=== PATIENT | female | born 1980 | race American Indian/Alaskan Native ===

== ENCOUNTER 2017-09-06 21:35 | Emergency (ER) | payer SELFPAY ==
--- NOTE | 2017-09-06 22:30 | Emergency Department Report ---
HPI - General Chief Complaint: Psych Time Seen by Provider: 09/06/17 22:08 - HPI HPI: Antoine [id number] The patient is a 36-year-old female presenting with a chief complaint of altered mental status. Patient was found by police standing in the middle of the street in the rain. The patient denies having psychiatric history but exhibits a labile affect while in the ED laughing out loud at times inappropriately. The patient states she was being transferred to a "new 5 bedroom home" which turned out to be a personal group home that was "demonic." The patient states "they had me in there with a woman who was in hell." The patient states earlier today there were people that wanted to "kick my behind and kill me." Location: Mental state Duration: Unknown Quality: Paranoid, delusional Severity: Severe Modifying factors: [see above] Context: [see above] Mode of transportation: [not driving] ED Past Medical Hx - Past Medical History Previous Medical History?: No Additional medical history: Patient denies medical history. Patient denies psychiatric history - Surgical History Past Surgical History?: No - Family History Family history: no significant - Social History Smoking Status: Never Smoker Substance Use Type: None (denies illicit drug use) - Medications Home Medications: Home Medications Medication Instructions Recorded Confirmed Last Taken Type Sulfamethoxazole/Trimethoprim 1 each PO BID #6 tablet 09/07/17 Unknown Rx [Bactrim DS TAB] ED Review of Systems ROS: Stated complaint: MH EVAL Other details as noted in HPI Psychiatric: denies: auditory hallucinations, visual hallucinations, homicidal thoughts, suicidal thoughts Physical Exam - Physical Exam Vital Signs: Vital Signs 09/06/17 21:54 Temperature 98.7 F Pulse Rate 88 Respiratory 17 Rate Blood Pressure 133/64 Physical Exam: GENERAL: The patient is well-developed well-nourished female sitting on stretcher not appearing to be in acute distress. Laughs outloud inappropriately at times HEENT: Normocephalic. Atraumatic. Extraocular motions are intact. Patient has moist mucous membranes. NECK: Supple. Trachea midline CHEST/LUNGS: Clear to auscultation. There is no respiratory distress noted. HEART/CARDIOVASCULAR: Regular. There is no tachycardia. There is no gallop rub or murmur. ABDOMEN: Abdomen is soft, nontender. Patient has normal bowel sounds. There is no abdominal distention. SKIN: There is no rash. There is no edema. There is no diaphoresis. NEURO: The patient is awake and alert. The patient is cooperative. The patient has normal speech MUSCULOSKELETAL: There is no evidence of acute injury. ED Course Vital Signs 09/06/17 21:54 Temperature 98.7 F Pulse Rate 88 Respiratory 17 Rate Blood Pressure 133/64 ED Medical Decision Making - Lab Data Result diagrams: 09/06/17 22:19 09/06/17 22:19 Laboratory Tests 09/06/17 09/06/17 09/06/17 22:19 22:19 22:19 WBC 7.0 RBC 4.83 Hgb 12.7 Hct 38.9 MCV 81 MCH 26 L MCHC 33 RDW 14.6 Plt Count 270 Lymph % (Auto) 26.8 [place] % (Auto) 8.2 H Eos % (Auto) 2.1 Baso % (Auto) 0.3 Lymph # 1.9 [place] # 0.6 Eos # 0.1 Baso # 0.0 Seg Neutrophils % 62.6 Seg Neutrophils # 4.4 Sodium 139 Potassium 3.6 Chloride 103.7 Carbon Dioxide 20 L Anion Gap 19 BUN 17 Creatinine 0.7 Estimated GFR > 60 BUN/Creatinine Ratio 24 Glucose 102 H Calcium 8.9 Total Bilirubin < 0.20 AST 21 ALT 28 Alkaline Phosphatase 102 Total Protein 7.0 Albumin 3.9 Albumin/Globulin Ratio 1.3 HCG, Quant < 2 Urine Color Urine Turbidity Urine pH Ur Specific [place] Urine Protein Urine Glucose (UA) Urine Ketones Urine Blood Urine Nitrite Urine Bilirubin Urine Urobilinogen Ur Leukocyte Esterase Urine WBC (Auto) Urine RBC (Auto) U Epithel Cells (Auto) Urine Mucus Urine Yeast (Budding) Salicylates Urine Opiates Screen Urine Methadone Screen Acetaminophen Ur Barbiturates Screen Ur Phencyclidine Scrn Ur Amphetamines Screen U Benzodiazepines Scrn Urine Cocaine Screen U Marijuana (THC) Screen Drugs of Abuse Note Plasma/Serum Alcohol 09/06/17 09/06/17 09/06/17 22:19 22:19 22:19 WBC RBC Hgb Hct MCV MCH MCHC RDW Plt Count Lymph % (Auto) [place] % (Auto) Eos % (Auto) Baso % (Auto) Lymph # [place] # Eos # Baso # Seg Neutrophils % Seg Neutrophils # Sodium Potassium Chloride Carbon Dioxide Anion Gap BUN Creatinine Estimated GFR BUN/Creatinine Ratio Glucose Calcium Total Bilirubin AST ALT Alkaline Phosphatase Total Protein Albumin Albumin/Globulin Ratio HCG, Quant Urine Color Urine Turbidity Urine pH Ur Specific [place] Urine Protein Urine Glucose (UA) Urine Ketones Urine Blood Urine Nitrite Urine Bilirubin Urine Urobilinogen Ur Leukocyte Esterase Urine WBC (Auto) Urine RBC (Auto) U Epithel Cells (Auto) Urine Mucus Urine Yeast (Budding) Salicylates < 0.3 L Urine Opiates Screen Urine Methadone Screen Acetaminophen < 5.0 L Ur Barbiturates Screen Ur Phencyclidine Scrn Ur Amphetamines Screen U Benzodiazepines Scrn Urine Cocaine Screen U Marijuana (THC) Screen Drugs of Abuse Note Plasma/Serum Alcohol < 0.01 09/06/17 09/06/17 Unknown Unknown WBC RBC Hgb Hct MCV MCH MCHC RDW Plt Count Lymph % (Auto) [place] % (Auto) Eos % (Auto) Baso % (Auto) Lymph # [place] # Eos # Baso # Seg Neutrophils % Seg Neutrophils # Sodium Potassium Chloride Carbon Dioxide Anion Gap BUN Creatinine Estimated GFR BUN/Creatinine Ratio Glucose Calcium Total Bilirubin AST ALT Alkaline Phosphatase Total Protein Albumin Albumin/Globulin Ratio HCG, Quant Urine Color Yellow Urine Turbidity Clear Urine pH 5.0 Ur Specific [place] 1.028 Urine Protein 30 mg/dl Urine Glucose (UA) Neg Urine Ketones Neg Urine Blood Lg Urine Nitrite Neg Urine Bilirubin Neg Urine Urobilinogen < 2.0 Ur Leukocyte Esterase Tr Urine WBC (Auto) 45.0 H Urine RBC (Auto) > 182.0 U Epithel Cells (Auto) 3.0 Urine Mucus Few Urine Yeast (Budding) 1+ Salicylates Urine Opiates Screen Presumptive negative Urine Methadone Screen Presumptive negative Acetaminophen Ur Barbiturates Screen Presumptive negative Ur Phencyclidine Scrn Presumptive negative Ur Amphetamines Screen Presumptive negative U Benzodiazepines Scrn Presumptive negative Urine Cocaine Screen Presumptive negative U Marijuana (THC) Screen Presumptive negative Drugs of Abuse Note Disclamer Plasma/Serum Alcohol - Differential Diagnosis psychosis NOS, schizophrenia Critical care attestation.: If time is entered above; I have spent that time in minutes in the direct care of this critically ill patient, excluding procedure time. ED Disposition Clinical Impression: Delusional disorder, UTI (urinary tract infection) Disposition: [id number]/TX-65 PSY HOSP/PSY UNIT Is pt being admited?: No Does the pt Need Aspirin: No Condition: Fair Prescriptions: Sulfamethoxazole/Trimethoprim [Bactrim DS TAB] 1 each PO BID #6 tablet Referrals: PRIMARY CARE, [Primary Care Provider] - 3-5 Days Time of Disposition: 01:04 (awaiting acceptance)
[2017-09-06 22:57] LABS: Alanine Aminotransferase 28 units/L (7-56); Albumin 3.9 g/dL (3.9-5); BUN/Creatinine Ratio 24; Basophils % (Auto) 0.3 % (0.0-1.8); Blood Urea Nitrogen 17 mg/dL (7-17); Calcium 8.9 mg/dL (8.4-10.2); Eosinophils # (Auto) 0.1 K/mm3 (0.0-0.4); Eosinophils % (Auto) 2.1 % (0.0-4.3); Hematocrit 38.9 % (30.3-42.9); Hemoglobin 12.7 gm/dl (10.1-14.3); Hemolysis Index 3; Lymphocytes # (Auto) 1.9 K/mm3 (1.2-5.4); Lymphocytes % (Auto) 26.8 % (13.4-35.0); Mean Corpuscular HGB Conc 33 % (30-34); Mean Corpuscular Hemoglobin 26 pg (28-32); Mean Corpuscular Volume 81 fl (79-97); Monocytes # (Auto) 0.6 K/mm3 (0.0-0.8); Monocytes % (Auto) 8.2 % (0.0-7.3); Platelet Count 270 K/mm3 (140-440); Red Blood Count 4.83 M/mm3 (3.65-5.03); Red Cell Distribution Width 14.6 % (13.2-15.2)
[2017-09-06 23:01] LABS: Bilirubin,Urine NEG (Negative); Blood,Urine LG (Negative); Color,Urine Yellow (Yellow); Mucus,Urine FEW /HPF; Urobilinogen,Urine < 2.0 mg/dL (<2.0)
[2017-09-06 23:02] LABS: RBC,Urine > 182.0 /HPF (0.0-6.0)
[2017-09-06 23:10] LABS: Amphetamine Screen,Urine PRESUMPTIVE NEGATIVE; Benzodiazepines Screen,Urine PRESUMPTIVE NEGATIVE; Cannabinoid Screen,Urine PRESUMPTIVE NEGATIVE; Cocaine Screen,Urine PRESUMPTIVE NEGATIVE; Methadone Screen,Urine PRESUMPTIVE NEGATIVE; Opiate Screen,Urine PRESUMPTIVE NEGATIVE
[2017-09-07] MEDS ORDERED: HALDOL IM PRN (01:01)
[2017-09-07] MEDS: ATIVAN IM PRN ×2 (01:14→13:02)
[2017-09-07] MEDS: BENADRYL IM PRN (01:15)
[2017-09-07] MEDS: BACTRIM DS PO SCH ×2 (10:16→22:26)
--- NOTE | 2017-09-07 17:44 | Consultation ---
History of Present Illness - Reason for Consult Consult date: 09/07/17 Reason for consult: Initial Psychiatric Evaluation - Chief Complaint Chief complaint: " I'm seeking a place to live." - History of Present Psychiatric Illness Patient is a 36-year-old female who presents with a chief complaint of altered mental status. Patient was found by police standing in the middle of the street in the rain. The patient denies having a psychiatric history but exhibits a labile affect and evidence of psychosis. During the assessment patient refers to herself as Lisseth. Although she denies psychosis , currently patient is delusional. 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 She reports good energy, appetite, and sleep. Patient seen responding to internal stimuli, laughing inappropriately. She denies depressed mood and suicidal/homicidal ideations. Current Psychiatric Medications: Patient denies. Past Psychiatric History: Patient denies PPHx; No previous psychiatric inpatient hospitalizations; No outpatient psychiatrist; No previous suicide attempts. Past Psychiatric Medication Trials: Patient denies. History of Trauma/Abuse: Patient denies sexual, physical, and mental abuse. Drug/Alcohol Abuse: Patient denies drug/alcohol abuse. UDS is negative. Social History: Some College (?); No source of income; Single; Homeless (?) Medications and Allergies Allergies Allergy/AdvReac Type Severity Reaction Status Date / Time No Known Drug Allergies Allergy Unknown Verified 09/07/17 01:19 Home Medications Medication Instructions Recorded Confirmed Last Taken Type Sulfamethoxazole/Trimethoprim 1 each PO BID #6 tablet 09/07/17 Unknown Rx [Bactrim DS TAB] Active Meds: Active Medications Diphenhydramine HCl (Benadryl) 50 mg IM Q6H PRN PRN Reason: Agitation Last Admin: 09/07/17 01:15 Dose: 50 mg Haloperidol Lactate (Haldol) 10 mg IM Q8H PRN PRN Reason: Agitation Last Admin: 09/07/17 01:15 Dose: 10 mg Lorazepam (Ativan) 2 mg IM Q8H PRN PRN Reason: Agitation Last Admin: 09/07/17 13:02 Dose: 2 mg Trimethoprim/Sulfamethoxazole (Bactrim Ds) 1 each PO Q12HR RAE Stop: 09/10/17 10:00 Last Admin: 09/07/17 10:16 Dose: 1 each Mental Status Exam - Vital signs Last Vital Signs Temp 98.7 F 09/06/17 21:54 Pulse 88 09/06/17 21:54 Resp 17 09/06/17 21:54 BP 133/64 09/06/17 21:54 Pulse Ox - Exam Narrative exam: Mental Status Exam General Appearance: Causally Dressed-hospital gown Eye Contact: Intermittent Orientation: Alert and oriented x 4 ( person, place, time, and situation) Attitude/Behavior: Cooperative Sensorium: Distracted Psychomotor & Musculoskeletal Activity: Laying in bed Mood: "I'm fine." Affect: Constricted Speech/Language: Regular rate and tone. Thought Processes: Disorganized, circumstantial Thought Content: Impoverished. Delusions of grandeur and ideas of reference. Perception: Internally preoccupied. Laughing inappropriately. Concentration/Attention: Impaired Suicidal Ideations/Plan: Patient denies. Homicidal Ideations/Plan: Patient denies. Insight: Poor Judgment: Poor Results Result Diagrams: 09/06/17 22:19 09/06/17 22:19 Abnormal lab results 09/06/17 09/06/17 09/06/17 Range/Units 22:19 22:19 22:19 MCH 26 L (28-32) pg [place] % (Auto) 8.2 H (0.0-7.3) % Carbon Dioxide 20 L (22-30) mmol/L Glucose 102 H (65-100) mg/dL Urine WBC (Auto) (0.0-6.0) /HPF Salicylates < 0.3 L (2.8-20.0) mg/dL Acetaminophen (10.0-30.0) ug/mL 09/06/17 09/06/17 Range/Units 22:19 Unknown MCH (28-32) pg [place] % (Auto) (0.0-7.3) % Carbon Dioxide (22-30) mmol/L Glucose (65-100) mg/dL Urine WBC (Auto) 45.0 H (0.0-6.0) /HPF Salicylates (2.8-20.0) mg/dL Acetaminophen < 5.0 L (10.0-30.0) ug/mL All other labs normal. Assessment and Plan Assessment and plan: Impression: PPHx unknown. Psychosis Unspecified. Today patient is calm but disorganized during the assessment. Psychosis is evident. Patient is internally preoccupied and delusional. 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 She denies SI/HI. UDS negative. HCG less than 2. DDx: r/o Schizophrenia, Schizoaffective Disorder Recommendation/Plan: 1. Continue 1013 and reassess in 24 hours. 2. Gain collateral to determine proper disposition. 3. Start Zyprexa 5mg po QHS psychosis. Discussed possible metabolic side effects of Zyprexa. 4. Will monitor psychosis, mood, sleep, appetite, compliance, side effects.
[2017-09-08] MEDS: BACTRIM DS PO SCH ×2 (10:28→23:56)
[2017-09-08] MEDS: BENADRYL IM PRN (13:07)
[2017-09-08] MEDS: ATIVAN IM PRN (13:07)
--- NOTE | 2017-09-08 13:53 | Progress Note ---
Subjective - Reason for Consult Consult date: 09/08/17 Reason for consult: Psychiatry Follow-up - Chief Complaint Chief complaint: "My name is Lisseth" 36-year-old female who presents with a chief complaint of altered mental status. The patient was found by police standing in the middle of the street in the rain. Today the patient is calm, but disorganized and delusional during the assessment. She continue to state that her name is Lisseth. She is tangent and had to be redirected several times to keep her on topic. She is adamant that she is , but her HCG test was negative. She could not elaborate why she was brought to the ER. The patient is a poor historian at this time. Mental Status Exam - Vital signs Last Vital Signs Temp 97.8 F 09/08/17 10:00 Pulse 103 H 09/08/17 10:00 Resp 18 09/08/17 10:00 BP 129/75 09/08/17 10:00 Pulse Ox 98 09/08/17 10:00 - Exam Narrative exam: MSE: Appearance: calm, disheveled Behavior: poor eye contact Speech: regular rate and tone Mood: "okay" Affect: euphoric Thought Process: disorganized, tangential Thought Content: denies SI/HI's and VH's Motor Activity: sitting up in bed Cognition: A/O x 3 Insight: poor Judgment: poor Assessment and Plan Impression: Unspecified Psychosis. Today patient is calm, but disorganized during the assessment. HCG less than 2 (negative). DDx: R/O Schizophrenia, Schizoaffective Disorder, R/O Bipolar DO Recommendation/Plan: Continue 1013 with placement to inpatient psy services. Start Zyprexa 5 mg PO HS for psychosis. Attempted to discuss possible metabolic side effects of Zyprexa with patient. The benefit of the taking Zyprexa outweigh the risk at this time, she is psychotic.
[2017-09-08 14:41] LABS: Chol/HDL Ratio 4.91 %
[2017-09-09] MEDS: BACTRIM DS PO SCH (10:53)
--- NOTE | 2017-09-09 13:04 | Progress Note ---
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 The patient was found by police standing in the middle of the street in the rain. Today the patient is calm, but disorganized and delusional during the assessment. 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 During the interview, she would go from topic to topic. Her conversation isn't lucid nor logical. She denies SI/HI's and AH' s. She stated that her mother was present during the assessment. No indications of side effects of her medication. Mental Status Exam - Vital signs Last Vital Signs Temp 98.2 F 09/09/17 00:47 Pulse 109 H 09/09/17 00:47 Resp 16 09/09/17 00:50 BP 120/78 09/09/17 00:47 Pulse Ox 100 09/09/17 00:50 - Exam Narrative exam: MSE: Appearance: calm, disheveled Behavior: poor eye contact Speech: regular rate and tone Mood: "okay" Affect: euphoric Thought Process: disorganized, tangential, hyper mormon Thought Content: denies SI/HI's and VH's, grandiose Motor Activity: sitting up in bed Cognition: A/O x 3 Insight: poor Judgment: poor Assessment and Plan Impression: Unspecified Psychosis. Today patient is calm, but disorganized during the assessment. HCG less than 2 (negative). DDx: R/O Schizophrenia, Schizoaffective Disorder, R/O Bipolar DO Recommendation/Plan: Continue 1013 with placement to inpatient psy services. Continue Zyprexa 5 mg PO HS for psychosis. Attempted to discuss possible metabolic side effects of Zyprexa with patient. The benefit of the taking Zyprexa outweigh the risk at this time, she is psychotic.
[2017-09-09] MEDS: ATIVAN IM PRN (16:46)
[2017-09-09] MEDS: BENADRYL IM PRN (16:47)
[2017-09-09] MEDS ORDERED: GEODON IM ONE ×2 (17:27→17:39)
[2017-09-09 20:25] VITALS: BP 124/73
== END 2017-09-09 20:38 ==
LOC: EEVIPCON 21:35 → ED 21:35
DX: F22 Delusional disorders (principal); N39.0 Urinary tract infection, site not specified
CPT/HCPCS: 36415; 80053; 80061; 80307; 81001; 83036; 84702; 85025; 96372; 99285; G0480; J1200; J1630; J2060; J3486; 80320